=== PATIENT | male | born 1950 | race Caucasian/White ===

== ENCOUNTER 2017-04-23 13:40 | Outpatient (CLI) | payer MEDICARE, OTHER ==
--- OUTSIDE RECORDS SUMMARY | 2017-04-23 15:06 | XMS | Clinical Summary ---
:1950 Author Organization [facility] Address [address] [place] [id number] Phone Care Team Providers Name Role Phone , Primary Care Provider Unavailable Allergies Active Allergy Reactions Severity Noted Date Comments Allergenic Extracts 10/14/2016 Influenza Virus Vaccines 10/14/2016 Metal taste in mouth Onion 10/14/2016 Current Medications Prescription Sig. Disp. Refills Start Date End Date Status difluprednate (DUREZOL) Apply to eye(s). Active 0.05 % Drop polymyxin B 1 drop. Active sulf-trimethoprim (POLYTRIM) 10,000 unit- 1 mg/mL Drop multivitamin per tablet Take 1 tablet by Active mouth daily. Active Problems Not on file Social History Tobacco Use Types Packs/Day Years Used Date Never Smoker Alcohol Use Drinks/Week oz/Week Comments Yes 7 Glasses of wine 4.2 Sex Assigned at Date Recorded Not on file Last Filed Vital Signs Vital Sign Reading Time Taken Blood Pressure 157/95 10/15/2016 3:10 PM CDT Pulse 63 10/15/2016 3:10 PM CDT Temperature 36.6 C (97.9 F) 10/15/2016 1:20 PM CDT Respiratory Rate 15 10/15/2016 3:10 PM CDT Oxygen Saturation 95% 10/15/2016 3:10 PM CDT Inhaled Oxygen Concentration - - Weight 86.2 kg (190 lb) 10/14/2016 5:30 PM CDT Height 177.8 cm (5' 10") 10/14/2016 5:30 PM CDT Body Mass Index 27.26 10/14/2016 5:30 PM CDT Plan of Treatment Not on file Implants Implanted Type Area Master Certified Rv Technician Device Expiration Model / Identifier Date Serial / Lot Gas Tank Ispan [id number] - [id number] Ophthalmology Left: [facility]: SURG 11/19/2017 [id number] / Implanted:Qty: 1 on 10/15/2016 by Donovan Serna MD Eye / [id number] Cornea Whole Cornea - [id number] Tissue Left: [facility] 2016 CORNEA / Implanted:Qty: 1 on 10/15/2016 by Donovan Serna MD Graft/Substitute Eye [facility] [id number] / Results Not on filefrom Last 3 Months
--- NOTE | 2017-04-23 17:04 | MRI ---
LUMBAR SPINE MRI NONCONTRAST: 04/23/17 COMPARISON: No prior comparison. INDICATION: Lumbar radiculopathy. FINDINGS: The vertebral body heights and lumbar spine are relatively well preserved. The conus medullaris term inates at the T12-L1 level. No acute disc space edema. Imaged retroperitoneum reveals no acute patho logy. 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 Mild end plate edema of t he L3 and L4 vertebral segments is present likely on the basis of Modic type I degenerative signal a lteration. There is degenerative disc space narrowing of L5-S1 with associated Modic type II end elle te degenerative signal alteration. L5-S1: Mild effacement of ventral thecal sac and mild left foraminal stenosis. No high grade right f oraminal stenosis. L4-5: Broad based disc bulge is present. There is an annular fissure of the right foraminal zone. Mi ld effacement of ventral thecal sac. Mild right foraminal narrowing. No high grade left foraminal na rrowing. L3-4: Mild central canal stenosis due to broad based disc osteophyte complex as well as narrowing of the right subarticular zone with a potential for impingement upon the traversing right L4 nerve keisha t. Minimal narrowing of right neural foramen. No significant left foraminal stenosis. L2-3: No high grade central canal or foraminal stenosis. L1-2: No significant central canal or neural foraminal stenosis. IMPRESSION: Multilevel degenerative change of the lumbar spine, with findings most pronounced at L3-4 where ther e is potential for impingement upon the traversing right L4 nerve root as result of disc osteophyte complex. POS: STORMY
== END 2017-04-23 13:41 | disposition home or self-care (01) ==
LOC: TBSIIMAG 13:40
PROVIDERS: ATTEND Neurological Surgery
DX: M47.26 Other spondylosis with radiculopathy, lumbar region (principal)
CPT/HCPCS: 72148

== ENCOUNTER 2017-06-25 11:07 | Outpatient (CLI) | payer MEDICARE, OTHER ==
[2017-06-25 13:28] LABS: Hemoglobin 15.9 g/dL (14.0-18.0); Mean Corpuscular HGB CONC 33.4 g/dL (32.0-36.0); Mean Platelet Volume 6.3 fL (7.4-10.4); Platelet Count 161 thou/uL (130-400); RBC Distribution Width 12.9 % (11.5-14.5); Red Blood Cell (RBC) Count 4.68 mill/uL (4.70-6.10); White Blood Cell (WBC) Count 6.8 thou/uL (4.8-10.8)
[2017-06-25 13:56] LABS: Anion Gap 16 mmol/L (10-20); BUN (Urea Nitrogen) 23 mg/dL (8.4-25.7); Calc. Creatinine Clearance 0 mL/min (70-130); Calcium 9.6 mg/dL (7.8-10.44); Carbon Dioxide 28 mmol/L (23-31); Chloride 104 mmol/L (98-107); Estimated GFR-MDRD 63; Glucose 87 mg/dL (80-115); Potassium 4.5 mmol/L (3.5-5.1); Sodium 143 mmol/L (136-145)
--- NOTE | 2017-07-02 19:36 | EKG ---
Test Reason : Blood Pressure : / mmHG Vent. Rate : 068 BPM Atrial Rate : 068 BPM P-R Int : 148 ms QRS Dur : 084 ms QT Int : 382 ms P-R-T Axes : 040 -06 005 degrees QTc Int : 406 ms Normal sinus rhythm Moderate voltage criteria for LVH, may be normal variant Inferior infarct , age undetermined Abnormal ECG No previous ECGs available Confirmed by MANOLO PATEL (2) on 07/02/2017 7:36:44 PM Referred By: DOUG Confirmed By:MANOLO PATEL
== END 2017-06-25 11:08 | disposition home or self-care (01) ==
LOC: LABBT 11:07
PROVIDERS: ATTEND Neurological Surgery
DX: Z01.818 Encounter for other preprocedural examination (principal); M48.061 Spinal stenosis, lumbar region without neurogenic claudication
CPT/HCPCS: 80048; 85027; 93005; 93010

== ENCOUNTER 2017-06-29 08:50 | Day surgery (SDC) | payer MEDICARE, OTHER ==
[2017-06-25 11:44] VITALS: BMI 27.2
[2017-06-29] MEDS ORDERED: CEFAZOLIN/Water 2 GM/20 ML SYRINGE ONE (10:00)
[2017-06-29] MEDS ORDERED: Fentanyl 100 MCG/2 ML VIAL ONE ×4 (11:31→14:13)
--- NOTE | 2017-06-29 13:42 | OP ---
DATE OF PROCEDURE: 06/29/2017 SURGEON: Ken Siddiqi M.D. COMPRESSOR OPERATOR: Bhakti Feldman PA-C PROCEDURES: Right L3-L4 and L4-L5 laminectomy, right L4 foraminotomy. PROCEDURE IN DETAIL: The patient was brought into the operating room, intubated. He was rolled in t he prone position on gel-filled chest rolls. Incision was made exposing L3 through L5 on the right a nd our level was confirmed by x-ray. We performed a very small right L3-L4 hemilaminotomy and a righ t L4-L5 facetectomy and laminectomy. We identified the right L4 nerve root and followed this beneath the right L4 pedicle. The right L4-L5 facet was quite diseased and causing significant right L4 for aminal stenosis. This was completely decompressed and debrided. After complete decompression of rig ht L4 was secured, the wound was extensively irrigated, immaculate hemostasis was secured. Vancomyci n powder was applied and the wound was closed in anatomic layers.
[2017-06-29] MEDS ORDERED: HYDROmorphone 0.5 MG/0.5 ML SYRINGE ONE ×4 (14:33→15:27)
[2017-06-29] MEDS ORDERED: Acetaminophen/Codeine 30-300mg Tablet ONE ×2 (16:14)
[2017-06-29] MEDS ORDERED: Ondansetron HCl/PF 4 MG/2 ML Vial ONE (16:53)
[2017-06-29] MEDS ORDERED: Lidocaine 1% PF 5 ML VIAL ONE (16:53)
[2017-06-29] MEDS ORDERED: PROPOFOL 200 MG/20 ML VIAL ONE (16:53)
[2017-06-29] MEDS ORDERED: ePHEDrine/0.9% NaCl/PF SYRINGE 50 mg/10 ml ONE (16:53)
[2017-06-29] MEDS ORDERED: Ketorolac Tromethamine 30 MG/ML VIAL ONE (16:53)
[2017-06-29] MEDS ORDERED: Dexamethasone 20 MG/5 ML VIAL ONE (16:53)
[2017-06-29] MEDS ORDERED: Glycopyrrolate 0.2 MG/ML 5 ML SYRINGE ONE (16:53)
== END 2017-06-29 17:42 | disposition home or self-care (01) ==
LOC: SDC 08:50
PROVIDERS: ATTEND Neurological Surgery
PROC: 01NB0ZZ Release Lumbar Nerve, Open Approach (ICD-10-PCS; principal; 2017-06-29)
DX: M51.16 Intervertebral disc disorders with radiculopathy, lumbar region (principal); M48.061 Spinal stenosis, lumbar region without neurogenic claudication; K21.9 Gastro-esophageal reflux disease without esophagitis; F41.9 Anxiety disorder, unspecified; M19.90 Unspecified osteoarthritis, unspecified site; Z79.899 Other long term (current) drug therapy; Z88.7 Allergy status to serum and vaccine; Z91.018 Allergy to other foods; Z90.49 Acquired absence of other specified parts of digestive tract; Z98.41 Cataract extraction status, right eye; Z98.42 Cataract extraction status, left eye; Z94.7 Corneal transplant status; Z98.890 Other specified postprocedural states
CPT/HCPCS: 76001; 96374; J1100; J1170; J1885; J2001; J2405; J2704; J3010; J3370

== ENCOUNTER 2018-11-04 19:30 | Outpatient (CLI) | payer MEDICARE, OTHER | END 2018-11-04 19:31 | disposition home or self-care (01) | LOC: SLEEPLAB 19:30 | PROVIDERS: ATTEND Family Medicine | DX: G47.33 Obstructive sleep apnea (adult) (pediatric) (principal); R53.83 Other fatigue; F41.9 Anxiety disorder, unspecified; G47.31 Primary central sleep apnea | CPT/HCPCS: 95811 ==

== ENCOUNTER 2019-04-11 11:21 | Outpatient (CLI) | payer MEDICARE, OTHER ==
--- NOTE | 2019-04-11 12:17 | ULT ---
EXAM: Testicular/scrotal ultrasound HISTORY: Pea-sized palpable mass in the left testicle COMPARISON: None TECHNIQUE: Multiplanar grayscale and color Doppler images were obtained in a testicular/scrotal ultra sound. Spectral analysis of the Doppler waveforms of the testicles were performed. FINDINGS: Right testicle: Normal in echogenicity. No solid mass. Normal internal flow. Left testicle: Normal in echogenicity. No solid mass. Tiny anechoic cysts in the left testicle measur ing up to 3 mm. Normal internal flow. Right epididymis. No epididymal cyst. Normal internal flow. Left epididymis. No epididymal cyst. Normal internal flow. There is a shadowing calcification adjac ent to the epididymal tail measuring 6 mm in size. This corresponds the palpable abnormality. A minimal hydrocele is present. No varicocele is present. IMPRESSION: 1. No significant testicular abnormality 2. The palpable abnormality in the left scrotum likely represents a small scrotal kasia.
== END 2019-04-11 11:22 | disposition home or self-care (01) ==
LOC: SCSULT 11:21
PROVIDERS: ATTEND Family Medicine
DX: N50.89 Other specified disorders of the male genital organs (principal)
CPT/HCPCS: 76870; 93976

== ENCOUNTER 2020-09-25 08:50 | Outpatient (CLI) | payer MEDICARE, OTHER | END 2020-09-25 08:51 | disposition home or self-care (01) | LOC: SCSRAD 08:50 | PROVIDERS: ATTEND Psychiatry & Neurology Neurology | DX: M47.816 Spondylosis without myelopathy or radiculopathy, lumbar region (principal) | CPT/HCPCS: 72100 ==

== ENCOUNTER 2021-03-26 09:54 | Outpatient (CLI) | payer MEDICARE, OTHER ==
[2021-03-26 11:34] LABS: #Basophils 0.1 10x3/uL (0.0-0.2); #Eosinphils 0.2 10x3/uL (0.0-0.5); #Monocytes 0.6 10x3/uL (0.0-1.1); #Neutrophils 3.7 10x3/uL (1.5-8.4); %Basophils 1.2 % (0.0-2.0); %Eosinophils 2.8 % (0.0-6.0); %Lymphocytes 32.4 % (18.0-47.0); %Monocytes 8.4 % (0.0-10.0); %Neutrophils 55.1 % (40.0-75.0); Hemoglobin 16.1 g/dL (13.5-17.5); Mean Corpuscular HGB CONC 33.8 g/dL (32.0-36.0); Mean Corpuscular Hemoglobin 32.7 pg (27.0-33.0); Mean Platelet Volume 9.1 fl (7.4-10.4); Platelet Count 203 10x3/uL (150-450); RBC Distribution Width 12.3 % (11.5-14.5); Red Blood Cell (RBC) Count 4.92 10x6/uL (4.32-5.72); White Blood Cell (WBC) Count 6.7 10x3/uL (3.5-10.5)
[2021-03-26 12:12] LABS: Anion Gap 15 mmol/L (10-20); BUN (Urea Nitrogen) 19 mg/dL (8.4-25.7); Calc. Creatinine Clearance 0 mL/min (70-130); Calcium 9.5 mg/dL (7.8-10.44); Carbon Dioxide 26 mmol/L (23-31); Chloride 105 mmol/L (98-107); Glucose 92 mg/dL (83-110); Potassium 4.6 mmol/L (3.5-5.1); Sodium 141 mmol/L (136-145)
[2021-03-26 18:30] LABS: SARS-CoV-2 PCR by NAA Not Detected (NotDetected)
== END 2021-03-26 09:55 | disposition home or self-care (01) ==
LOC: LABBT 09:54
PROVIDERS: ATTEND Surgery
DX: Z01.818 Encounter for other preprocedural examination (principal); K43.9 Ventral hernia without obstruction or gangrene; Z20.822 Contact with and (suspected) exposure to COVID-19
CPT/HCPCS: 71046; 80048; 85025; 93005; U0003; U0005; 93010

== ENCOUNTER 2021-03-29 05:55 | Day surgery (SDC) | payer MEDICARE, OTHER ==
[2021-03-28 10:56] VITALS: BMI 27.8
[2021-03-29] MEDS ORDERED: ceFAZolin 2 GM/DEX 5% 100 ML BAG ONE (06:19)
[2021-03-29] MEDS ORDERED: Midazolam HCl 2 mg/2 ml Vial ONE (06:57)
[2021-03-29] MEDS ORDERED: Fentanyl 100 MCG/2 ML VIAL ONE ×3 (06:57→12:21)
[2021-03-29] MEDS ORDERED: Bupivacaine 0.25% HCL 30 ML VIAL ONE (07:09)
[2021-03-29] MEDS ORDERED: Lidocaine 1% w/Epinephrine 1:100K 20 ML VIAL ONE (07:09)
[2021-03-29] MEDS ORDERED: Dexamethasone 20 MG/5 ML VIAL ONE (08:10)
[2021-03-29] MEDS ORDERED: Metoprolol Tartrate 5 MG/5 ML VIAL ONE ×2 (08:10→11:17)
[2021-03-29] MEDS ORDERED: ePHEDrine 50 MG/ML VIAL ONE (08:10)
[2021-03-29] MEDS ORDERED: Ondansetron PF 4 MG/2 ML Vial ONE (08:10)
[2021-03-29] MEDS ORDERED: Rocuronium Bromide 10 MG/ML (10ML VIAL) ONE (08:10)
[2021-03-29] MEDS ORDERED: Lidocaine 1% PF 5 ML VIAL ONE (08:10)
[2021-03-29] MEDS ORDERED: PROPOFOL 200 MG/20 ML VIAL ONE (08:10)
[2021-03-29] MEDS ORDERED: Morphine 4 MG/ML VIAL ONE (13:02)
[2021-03-29] MEDS ORDERED: HYDROcodone/Acetaminophen 5/325 mg Tablet ONE (14:42)
== END 2021-03-29 15:05 | disposition home or self-care (01) ==
LOC: SDC 05:55
PROVIDERS: ATTEND Surgery
PROC: 0WUF4JZ Supplement Abdominal Wall with Synthetic Substitute, Percutaneous Endoscopic Approach (ICD-10-PCS; principal; 2021-03-29)
DX: K43.2 Incisional hernia without obstruction or gangrene (principal); K66.0 Peritoneal adhesions (postprocedural) (postinfection); I10 Essential (primary) hypertension; E78.5 Hyperlipidemia, unspecified; K21.9 Gastro-esophageal reflux disease without esophagitis; F17.290 Nicotine dependence, other tobacco product, uncomplicated; Z79.899 Other long term (current) drug therapy; Z88.7 Allergy status to serum and vaccine; Z91.018 Allergy to other foods
CPT/HCPCS: J1100; J2250; J2270; J2405; J2704; J3010; J3490; S0020